=== PATIENT | female | born 1985 | race Caucasian/White ===

== ENCOUNTER 2018-06-25 11:42 | Emergency (ER) | payer OTHER ==
[2018-06-25 11:53] VITALS: BP 143/114
[2018-06-25] MEDS ORDERED: Albuterol 2.5 MG/3 ML NEB.SOL* (0.083%) INH ONE (13:39)
[2018-06-25] MEDS ORDERED: Ipratropium 0.5MG/2.5ML NEB* 0.5 MG/2.5 ML NEB.SOLN INH ONE (13:39)
[2018-06-25] MEDS ORDERED: predniSONE TAB* 20 MG PO ONE (13:39)
--- NOTE | 2018-06-25 13:45 | UC ---
Respiratory Complaint HPI - HPI Summary HPI Summary: 2 DAYS OF SHORTNESS OF BREATH AND WHEEZE. NO SIGNIFICANT COUGH OR CONGESTION. NO FEVER. DENIES CHEST PAIN OR SWEATS. NO NAUSEA. IS A HEAVY SMOKER BUT DENIES ANY HISTORY OF ASTHMA OR OTHER UNDERLYING LUNG DISORDER. - History of Current Complaint Chief Complaint: UCRespiratory Stated Complaint: DIFCULTY BREATHING Time Seen by Provider: 06/25/18 13:24 Hx Obtained From: Patient Hx Last Menstrual Period: 06/04/18 Onset/Duration: Gradual Onset, Lasting Days, Still Present Timing: Constant Severity Initially: Moderate Severity Currently: Moderate Pain Intensity: 0 Pain Scale Used: 0-10 Numeric Character: Cough: Nonproductive Aggravating Factors: Nothing Alleviating Factors: Nothing Associated Signs And Symptoms: Positive: Dyspnea, Wheezing. Negative: Fever, Chills, Pleuritic Chest Pain, URI, Nasal Congestion - Allergies/Home Medications Allergies/Adverse Reactions: Allergies Allergy/AdvReac Type Severity Reaction Status Date / Time MS Penicillins [Penicillins] Allergy Intermediate Rash Verified 02/25/16 15:35 Penicillins Allergy Rash Verified 06/25/18 11:53 PMH/Surg Hx/FS Hx/Imm Hx Previously Healthy: Yes - Surgical History Surgical History: Yes Surgery Procedure, Year, and Place: cholecystectomy. tonsillectomy. WISDOM TEETH tubals bilat - Family History Known Family History: Positive: Non-Contributory - Social History Alcohol Use: Rare Substance Use Type: None Smoking Status (MU): Current Every Day Smoker Type: Cigarettes Amount Used/How Often: 1/2ppd Review of Systems All Other Systems Reviewed And Are Negative: Yes Constitutional: Positive: Negative ENT: Positive: Negative Respiratory: Positive: Shortness Of Breath Cardiovascular: Positive: Negative Gastrointestinal: Positive: Negative Physical Exam Triage Information Reviewed: Yes Appearance: Well-Appearing, No Pain Distress, Well-Nourished Vital Signs: Initial Vital Signs Temp 98.5 F 06/25/18 11:50 Pulse 95 06/25/18 11:50 Resp 16 06/25/18 11:50 BP 143/114 06/25/18 11:50 Pulse Ox 100 06/25/18 11:50 Vital Signs Reviewed: Yes Eyes: Positive: Conjunctiva Clear ENT: Positive: Hearing grossly normal, Pharynx normal, TMs normal Neck: Positive: Supple, Nontender, No Lymphadenopathy Respiratory Exam: Normal Cardiovascular Exam: Normal Abdomen Description: Positive: Soft Musculoskeletal: Positive: No Edema Neurological: Positive: Alert Psychological: Positive: Age Appropriate Behavior Skin: Negative: Rashes Re-Evaluation - Re-Evaluation First Eval Re-Evaluation Time: 14:20 - FELT BETTER AFTER ALB/IPR NEB AND PREDNISONE. BREATHING EASIER. READY FOR D/C Change: Improved Respiratory Course/Dx - Differential Dx/Diagnosis Provider Diagnosis: Bronchospasm Discharge - Sign-Out/Discharge Documenting (check all that apply): Patient Departure All imaging exams completed and their final reports reviewed: No Studies - Discharge Plan Condition: Stable Disposition: HOME Prescriptions: Albuterol HFA INHALER* [Ventolin HFA Inhaler*] 2 puff INH Q4H PRN #1 mdi PRN Reason: Shortness Of Breath predniSONE TAB* [Deltasone TAB*] 50 mg PO DAILY #4 tab Patient Education Materials: Bronchospasm (ED) Referrals: Mark Anthony Anguiano MD [Primary Care Provider] - If Needed Additional Instructions: YOU FELT IMPROVED AFTER NEBULIZER TREATMENT AND PREDNISONE. CONTINUE THE PREDNISONE FOR THE NEXT 4 DAYS. PRESCRIPTION FOR NEW INHALER ALSO PROVIDED. FOLLOW-UP WITH A PCP. CONSIDER FORMAL EVALUATION FOR ASTHMA/COPD OR OTHER UNDERLYING LUNG CONDITION. QUIT SMOKING. - Billing Disposition and Condition Condition: STABLE Disposition: Home
== END 2018-06-25 14:37 | disposition home or self-care (01) ==
LOC: UCEAST 11:42
DX: J98.01 Acute bronchospasm (principal); Z88.0 Allergy status to penicillin; F17.210 Nicotine dependence, cigarettes, uncomplicated
CPT/HCPCS: 99212; G0463; J7512